=== PATIENT | male | born 1970 | race Caucasian/White ===

== ENCOUNTER 2022-08-25 06:23 | Emergency (ER) | payer BC ==
--- OUTSIDE RECORDS SUMMARY | 2022-08-25 06:28 | XMS REPORT | Continuity of Care Document ---
:1970 Author Organization [facility] t Address [address] [place] [address] Care Team Providers Name Role Phone Asked, No Pcp Primary Care Physician Unavailable Shan Lim DO Attending Clinician Jazlyn Noriega MD Attending Clinician Magdi Simmons MD Attending Clinician Marisel Mc MD Attending Clinician [phone] Christian Peters MD Attending Clinician Isabel OLMSTEAD, Janeen Stone Attending Clinician Chelsey Solo MA Attending Clinician Unavailable JEANA SCHERER Attending Clinician Unavailable RACHEL RICHARDS Attending Clinician Unavailable MD RACHEL RICHARDS Attending Clinician Unavailable MYNOR CLEMONS Attending Clinician Unavailable MD CHRISTIAN PETERS Attending Clinician Unavailable AKIL HERNÁNDEZ Attending Clinician Unavailable Aleksandar Barth Attending Clinician ALEKSANDAR HARRISON Attending Clinician Unavailable JAZLYN NORIEGA Admitting Clinician Unavailable MARISEL MC Admitting Clinician Unavailable RACHEL RICHARDS Admitting Clinician Unavailable MD RACHEL RICHARDS Admitting Clinician Unavailable JEANA SCHERER Admitting Clinician Unavailable CHRISTIAN PETERS Admitting Clinician Unavailable MD CHRISTIAN PETERS Admitting Clinician Unavailable Payers Payer Name Policy Type Policy Number Effective Date Expiration Date S ource Problems Condition Condition Condition Status Onset Resolution Last Treating Co mments Source Name Details Category Date Date Treatment Clinician Date Weakness Weakness Disease Active Metho di 9-21 st 00:00: Hospita 00 l Acute Acute Disease Active Methodi intractabl intractabl 3-15 st e e 00:00: Hospita tension-ty tension-ty 00 l pe pe headache headache Drug-induc Drug-induc Disease Active 2019-11 M ethodi ed ed 0-25 st constipati constipati 00:00: Ho spita on on 00 l Spinal Spinal Disease Active 2019-11 Methodi cord cord 0-15 st compressio compressio 00:00: Ho spita n n 00 l Stenosis, Stenosis, Disease Active 2019-11 Met steven spinal, spinal, 0-09 st thoracic thoracic 00:00: Hospit a 00 l Colitis Colitis Disease Active [facility] l Kidney Kidney Disease Active Methodi stones stones st Hospita l Allergies, Adverse Reactions, Alerts Allergy Allergy Status Severity Reaction(s) Onset Inactive Treating Comm ents Source Name Type Date Date Clinician NO KNOWN Drug Active Univers ALLERGIE [facility] Social History Social Habit Start Date Stop Date Quantity Comments Source Exposure to Not sure [facility] SARS-CoV-2 [facility] History of Current smoker [facility] tobacco use Alcohol intake 2022-01-20 2022-01-20 Current drinker [facility] 00:00:00 00:00:00 of alcohol (finding) Tobacco use and 2020-10-29 2020-10-29 User of smokeless [facility] exposure 00:00:00 00:00:00 tobacco Alcohol Comment 2020-08-12 2020-08-12 5-6 drinks per [facility] 00:00:00 00:00:00 week Sex Ass[birth year] At [birth year] [facility] 00:00:00 00:00:00 Smoking Status Start Date Stop Date Source Ex-smoker 2020-10-29 00:00:00 2020-10-29 00:00:00 [facility] Never smoker [facility] Medications Ordered Filled Start Stop Current Ordering Indication Dosage Frequency Signature Comments Components Source Medication Medication Date Date Medication? Clinician (SIG) Name Name chlorzoxazo Yes 500mg Q.5D Take 1 Met steven ne (PARAFON 9-[address] FORTE) 500 15:10: (500 mg Hosp camila mg tablet 05 total) by l mouth 2 (two) times a day. simvastatin Yes 10mg QD Take 1 Meth bryan (ZOCOR) 10 07-31 tablet (10 st MG tablet 15:10: mg total) Hos zen 05 by mouth l daily. At noon naproxen 0 2021- No 220mg Q12H Take 1 Metho di sodium 07-[address] (ALEVE) 220 15:10: 00:00 (220 mg Ho spita MG tablet 05 :00 total) by l mouth every 12 (twelve) hours as needed for mild pain. metFORMIN 2021- No 500mg QD Take 1 Meth bryan XR 07-[address] (GLUCOPHAGE 15:15: 00:00 (500 mg Ho spita -XR) 500 mg 05 :00 total) by l 24 hr mouth tablet daily. At noon gabapentin Yes 1600mg Q.5D Take 1,600 Methodi (NEURONTIN) -[address] 800 mg 15:15: mouth 2 Hospita tablet 02 (two) l times a day. Continuous Yes by [facility] Home 07-[address] Implanted 15:15: l route Hospi ta Intrathecal 02 continuous l Pain Pump ly. Implanted Dilaudid IT Pain Pump. Patient able to self-admin ister bolus 2-4 times daily.Infu renee rate: 0.48 mg / 24 hrSelf-Jc us of 0.2003 mg / bolus 2 to 4 times prn daily with 1 hour intervalsR efill due on: Septemberrescr bharati Doctor: Akil Hernández(per Prescripti on Drug Monitoring Program, last filled 05/28/2022 , quantity: 0.10, day supply: 1) nebivoloL 2021- No 20mg QD Take 20 mg M ethodi (BYSTOLIC) 07-[address] 20 mg 15:16: 00:00 daily. Hospita tablet 34 :00 l atorvastati 2021- No 10mg QD Take 10 mg Methodi n (LIPITOR) 07-[address] 10 mg 15:16: 00:00 daily. Hospita tablet 03 :00 l SITagliptin No 50mg QD Take 50 mg Methodi (JANUVIA) 3-15 -[address] 50 MG 12:06: 00:00 daily. AM Hospit a tablet 09 :00 [place] [id number] 1{tbl} Q8H Take 1 Methodi -acetaminop 3-15 -[address] hen (NORCO) 12:06: 00:00 mouth Hosp camila 10-325 mg 02 :00 every 8 l per tablet (eight) hours as needed for moderate pain .acute pain. DULoxetine No 60mg QD Take 60 mg Methodi (CYMBALTA) 3-15 03-[address] 60 MG 12:05: 00:00 daily. AM Hospit a capsule 55 :00 l baclofen No 10mg Q.5D Take 10 mg Me thodi (LIORESAL) -15 -[address] 10 MG 12:05: 00:00 (two) Hospita tablet 49 :00 times a l day. methocarbam No 500mg Q12H Take 500 Methodi oL 4-08 09-[address] (ROBAXIN) 00:00: 00:00 mouth Hospit a 500 MG 00 :00 every 12 l tablet (twelve) hours. Immunizations Ordered Immunization Filled Immunization Date Status Commen ts Source Name Name FLUCELVAX QUAD PF 2022-07-[address] 00:00:00 Hospital FLUCELVAX QUAD PF 2020-08-[address] 00:00:00 Hospital Vital Signs Vital Name Observation Time Observation Value Comments Source Systolic blood 2020-06-05 19:10:00 138 mm[Hg] Univer sity of pressure [facility] Diastolic blood 2020-06-05 19:10:00 87 mm[Hg] Unive rsity of pressure [facility] Heart rate 2020-06-05 19:10:00 80 /min [facility] Body weight 2020-06-05 19:10:00 104.327 kg [facility] Systolic blood 2022-07-30 17:07:03 130 mm[Hg] Method ist Hospital pressure Diastolic blood 2022-07-30 17:07:03 89 mm[Hg] [facility] dist Hospital pressure Heart rate 2022-07-30 17:07:03 84 /min [facility] Body temperature 2022-07-30 17:07:03 36.83 [facility] Respiratory rate 2022-07-30 17:07:03 18 /min [facility] Oxygen saturation in 2022-07-30 17:07:03 95 /min [facility] Arterial blood by Pulse oximetry Body height 2022-07-29 11:58:00 177.8 cm [facility] Body weight 2022-07-29 11:58:00 92.987 kg [facility] BMI 2022-07-29 11:58:00 29.41 kg/m2 [facility] Procedures Procedure Date / Time Performing Clinician Source Performed POC GLUCOSE 2022-07-30 17:32:00 Jazlyn Noriega spital POC GLUCOSE 2022-07-30 13:51:00 Jazlyn Noriega spital URINALYSIS SCREEN AND 2022-07-30 13:09:00 Leann [facility] MICROSCOPY, WITH REFLEX TO CULTURE URINE CULTURE 2022-07-30 13:09:00 Jazlyn Noriega spital HC COMPLETE BLD COUNT 2022-07-30 09:31:00 Leann [facility] W/AUTO DIFF BASIC METABOLIC PANEL 2022-07-30 09:31:00 Leann [facility] ESTIMATED GFR 2022-07-30 09:31:00 Jazlyn Noriega spital BLOOD CULTURE, AEROBIC & 2022-07-30 04:39:00 Jazlyn Noriega [facility] ANAEROBIC LACTIC ACID LEVEL, SEPSIS 2022-07-30 04:38:00 Jazlyn Noriega [facility] - NOW AND REPEAT 2X EVERY 3 HOURS POC GLUCOSE 2022-07-30 02:16:00 Jazlyn Noriega spital LACTIC ACID LEVEL, SEPSIS 2022-07-30 01:59:00 Leann [facility] - NOW AND REPEAT 2X EVERY 3 HOURS ECG 12-LEAD 2022-07-30 01:41:05 Jazlyn Noriega spital POC GLUCOSE 2022-07-29 23:27:00 Jazlyn Noriega spital COVID-19 SEROLOGY PATIENT 2022-07-29 23:21:00 Leann [facility] SURVEILLANCE HEMOGLOBIN A1C 2022-07-29 23:21:00 Jazlyn Noriega spital LIPID PANEL 2022-07-29 23:21:00 aJzlyn Noriega spital LACTIC ACID LEVEL, SEPSIS 2022-07-29 23:21:00 Leann [facility] - NOW AND REPEAT 2X EVERY 3 HOURS COVID-19 ANTI-SPIKE IGG 2022-07-29 23:21:00 Leann [facility] ANTIBODY TITER XR CHEST 1 VW PORTABLE 2022-07-29 23:15:[address] [facility] BLOOD CULTURE, AEROBIC & 2022-07-29 23:00:00 Leann [facility] ANAEROBIC CT CHEST WO CONTRAST 2022-07-29 22:06:[address] [facility] TROPONIN T 2022-07-29 21:43:00 Jazlyn Noriega spital LACTIC ACID LEVEL, SEPSIS 2022-07-29 21:43:00 Leann [facility] - NOW AND REPEAT 2X EVERY 3 HOURS TROPONIN T 2022-07-29 17:40:00 Jazlyn Noriega spital LACTIC ACID LEVEL, SEPSIS 2022-07-29 17:40:00 Leann [facility] - NOW AND REPEAT 2X EVERY [address] HEAD WO CONTRAST 2022-07-29 14:03:[address] [facility] COMPREHENSIVE METABOLIC 2022-07-29 13:15:00 Lim, [facility] PANEL HC COMPLETE BLD COUNT 2022-07-29 [facility] LIPASE LEVEL 2022-07-29 13:15:00 Lim, [facility] ARTERIAL BLOOD GAS 2022-07-29 13:15:00 Carina [facility] TROPONIN T 2022-07-29 13:15:00 Jazlyn Noriega spital B NATRIURETIC PEPTIDE 2022-07-29 13:15:00 Lim, [facility] ESTIMATED GFR 2022-07-29 13:15:00 [facility] RESPIRATORY PATHOGEN 2022-07-29 13:15:00 [facility] PANEL WITH COVID-19 RT-PCR ECG 12-LEAD 2022-07-29 12:00:23 [facility] POC GLUCOSE 2022-01-21 17:05:00 [facility] CT CERVICAL SPINE WO 2022-01-21 15:53:29 [facility] CONTRAST [facility] POC GLUCOSE 2022-01-21 12:40:00 [facility] BASIC METABOLIC PANEL 2022-01-21 09:50:00 [facility] HC COMPLETE BLD COUNT 2022-01-21 09:50:00 [facility] W/AUTO DIFF [facility] LIPID PANEL 2022-01-21 09:50:00 [facility] HEMOGLOBIN A1C 2022-01-21 09:50:00 [facility] COVID-19 SEROLOGY PATIENT 2022-01-21 09:50:00 [facility] SURVEILLANCE [facility] ESTIMATED GFR 2022-01-21 09:50:00 [facility] COVID-19 ANTI-SPIKE IGG 2022-01-21 09:50:00 [facility] ANTIBODY TITER [facility] POC GLUCOSE 2022-01-21 02:23:00 [facility] URINE DRUGS OF ABUSE 2022-01-21 00:24:00 [facility] SCREEN [facility] EEG AWAKE/DROWSY LESS 2022-01-20 20:02:07 Lakisha, [facility] THAN 41 MIN Geronimo Waldron LACTIC ACID LEVEL, SEPSIS 2022-01-20 17:30:00 [facility] - NOW AND REPEAT 2X EVERY Shan 3 HOURS TROPONIN T 2022-01-20 17:30:00 [facility] Shan CT ABDOMEN PELVIS W 2022-01-20 16:14[facility]17 [facility] 12-LEAD 2022-01-20 14:54:09 [facility] LACTIC ACID LEVEL, SEPSIS 2022-01-20 14:10:00 [facility] - NOW AND REPEAT 2X EVERY Shan 3 HOURS TROPONIN T 2022-01-20 14:10:00 [facility] Shan ALCOHOL LEVEL, BLOOD 2022-01-20 14:10:00 [facility] BLOOD CULTURE, AEROBIC & 2022-01-20 14:10:00 [facility] ANAEROBIC BLOOD CULTURE, AEROBIC & 2022-01-20 14:00:00 [facility] ANAEROBIC ECG ED PRELIMINARY 2022-01-20 13:21:14 [facility] INTERPRETATION URINALYSIS SCREEN AND 2022-01-20 12:06:00 [facility] MICROSCOPY, WITH REFLEX Shan TO CULTURE COVID-19 QUALITATIVE 2022-01-20 11:29:00 [facility] RT-PCR Shan CT HEAD WO CONTRAST 2022-01-20 11:16:57 [facility] Shan COMPREHENSIVE METABOLIC 2022-01-20 11:04:00 [facility] PANEL Shan LACTIC ACID LEVEL, SEPSIS 2022-01-20 11:04:00 [facility] NOW AND REPEAT 2X EVERY Shan 3 HOURS HC COMPLETE BLD COUNT 2022-01-20 11:04:00 [facility] W/AUTO DIFF Shan PROTHROMBIN TIME WITH INR 2022-01-20 11:04:00 [facility] Shan PARTIAL THROMBOPLASTIN 2022-01-20 11:04:00 [facility] TIME (PTT) Shan CREATINE KINASE, TOTAL 2022-01-20 11:04:00 [facility] Shan B NATRIURETIC PEPTIDE 2022-01-20 11:04:00 [facility] Shan TROPONIN T 2022-01-20 11:04:00 [facility] Shan ESTIMATED GFR 2022-01-20 11:04:00 [facility] Shan POC GLUCOSE 2022-01-20 11:00:00 Provider, Unknown [facility] URINE CULTURE 2022-01-20 10:59:00 [facility] Shan MRI LUMBAR SPINE W WO 2021-09-30 14:44:00 [facility] CONTRAST MRI THORACIC SPINE W WO 2021-09-30 14:44[facility] of Care Planned Activity Planned Date Details Comments Source Future Scheduled 2022-08-10 HEPATITIS B VACCINES Met [facility] Test 05:48:03 (1 of 3 - 3-dose series) [code = HEPATITIS B VACCINES (1 of 3 - 3-dose series)] Future Scheduled 2022-08-10 Hepatitis C screening [facility] Test 05:48:03 (procedure) [code = 253031426] Future Scheduled 2022-08-10 COLONOSCOPY SCREENING [facility] Test 05:48:03 [code = COLONOSCOPY SCREENING] Future Scheduled 2022-08-10 COVID-19 VACCINE (3 - [facility] Test 05:48:03 Booster for Moderna series) [code = COVID-19 VACCINE (3 - Booster for Moderna series)] Future Scheduled 2022-08-10 SHINGLES VACCINES (1 Met [facility] Test 05:48:03 of 2) [code = SHINGLES VACCINES (1 of 2)] Encounters Start End Encounter Admission Attending Care Care Encounter Source Date/Time Date/Time Type Type Clinicians Facility Department ID 2022-07-29 2022-07-30 [facility] Shan Lim 1.2.840.1 [id number] [facility] 07:02:00 15:10:00 Encounter Jazlyn Noriega [id number] 3.430.2.7 Hospit a .3.759709 l .8 2022-07-292022-07-30 Outpatient LEANN [facility] [id number] [place] 00:00:00 00:00:[address] 2022-07-29 2022-07-29 Travel 1.2.840.1 1.2.425.323 [id number] Methodi 00:00:00 00:00:[id number] 3.430.2.7 0.2.7.3.698 Ho spita .3.340374 084.8 l .8 2022-01-20 2022-01-[facility] 1.2.840.1 [id number] Methodi 05:52:00 14:03:00 Encounter Marisel Mc 74472. 1.[address] 3.430.2.7 Hospit a .3.070825 l .8 2022-01-20 2022-01-21 Inpatient TRA [facility] [id number] [place] 00:00:00 00:00:00 MARISEL [address] 2021-11-19 2021-11-19 Office Fran, 1.2.840.1 [id number] Methodi 13:15:00 14:05:03 Visit Christian Aguirre 64673.1.[address] 3.430.2.7 Hospit a .3.977031 l .8 2021-11-19 2021-11-19 Outpatient FRAN [facility] [id number] [place] 00:00:00 00:00:[address]IAN [address] [facility] 2021-11-19 2021-11-19 Travel 1.2.840.1 1.2.907.766 [id number] Methodi 00:00:00 00:00:[address] 3.430.2.7 0.2.7.3.698 Ho spita .3.958269 084.8 l .8 2021-10-28 2021-10-28 Documentat Isabel, 1.2.840.1 [id number] Methodi 00:00:00 00:00:00 ion Janeenvalery Stone 22381.1.[address] 3.430.2.7 Hospit a .3.722005 l .8 2021-09-30 2021-09-30 [facility], 1.2.840.1 [id number] Methodi 06:51:20 23:59:00 Encounter Christian Aguirre 63509.1.[address] 3.430.2.7 Hospit a .3.276283 l .8 2021-09-30 2021-09-30 [facility] 1.2.840.1 [id number] Methodi 06:37:50 06:50:00 Encounter Christian Aguirre 57477.1.[address] 3.430.2.7 Hospit a .3.347669 l .8 2021-09-30 2021-09-30 Outpatient FRAN [facility] [id number] [address] [place] [address] 00:00:00 00:00:00 CHRISTIAN Garcia [facility] 2021-09-30 2021-09-30 Outpatient FRAN [facility] [id number] [address] [place] [address] 00:00:00 00:00:00 CHRISTIAN Navarrete [facility] 2021-09-30 2021-09-30 Travel 1.2.840.1 1.2.509.816 [id number] Methodi 00:00:00 00:00:[address] 3.430.2.7 0.2.7.3.698 Ho spita .3.995376 084.8 l .8 2021-09-24 2021-09-24 Travel 1.2.840.1 1.2.303.125 [id number] Methodi 00:00:00 00:00:[address] 3.430.2.7 0.2.7.3.698 Ho spita .3.099304 084.8 l .8 2021-09-17 2021-09-17 Office [facility] 1.2.840.1 [id number] Methodi 15:00:00 15:59:13 Visit Christian Aguirre 39318.1.[address] 3.430.2.7 Hospit a .3.839420 l .8 2021-09-17 2021-09-17 Outpatient PETERS, [facility] [id number] [place] 00:00:00 00:00:00 CHRISTIAN [address] 2021-09-17 2021-09-17 Orders Solo, 1.2.840.1 [id number] Methodi 00:00:00 00:00:00 Only Chelsey 87293.1.[address] 3.430.2.7 Hospit a .3.819081 l .8 2021-09-17 2021-09-17 Travel 1.2.840.1 1.2.799.530 [id number] Methodi 00:00:00 00:00:[address] 3.430.2.7 0.2.7.3.698 Ho spita .3.711935 084.8 l .8 2021-03-07 2021-03-07 Outpatient TASTARD, [facility] [id number] [place] 00:00:00 00:00:00 JEANA [address] 2021-02-28 2021-02-28 Outpatient TASTARD, [facility] [id number] [place] 00:00:00 00:00:00 JEANA [address] 2021-02-18 2021-02-18 Outpatient TASTARD, [facility] [id number] [place] 00:00:00 00:00:00 JEANA [address] 2021-02-18 2021-02-18 Outpatient TASTARD, [facility] [id number] [place] 00:00:00 00:00:00 JEANA [address] 2021-02-14 2021-02-14 Outpatient TASTARD, [facility] [id number] [place] 00:00:00 00:00:00 JEANA [address] 2021-02-04 2021-02-04 Outpatient TASTARD, [facility] [id number] [place] 00:00:00 00:00:00 JEANA [address] 2021-01-31 2021-01-31 Outpatient TASTARD, [facility] [id number] [place] 00:00:00 00:00:00 JEANA [address] 2021-01-30 2021-01-30 Outpatient TASTARD, [facility] [id number] [place] 00:00:00 00:00:00 JEANA [address] 2021-01-28 2021-01-28 Outpatient TASTARD, [facility] [id number] [place] 00:00:00 00:00:00 JEANA [address] 2021-01-23 2021-01-23 Outpatient TASTARD, [facility] [id number] [place] 00:00:00 00:00:00 JEANA [address] 2021-01-22 2021-01-22 Outpatient TASTARD, [facility] [id number] [place] 00:00:00 00:00:00 JEANA [address] 2021-01-20 2021-01-20 Outpatient TASTARD, [facility] [id number] [place] 00:00:00 00:00:00 JEANA [address] 2021-01-17 2021-01-17 Outpatient TASTARD, [facility] [id number] [place] 00:00:00 00:00:00 JEANA [address] 2021-01-16 2021-01-16 Outpatient TASTARD, [facility] [id number] [place] 00:00:00 00:00:00 JEANA [address] 2021-01-14 2021-01-14 Outpatient TASTARD, [facility] [id number] [place] 00:00:00 00:00:00 JEANA [address] 2021-01-10 2021-01-10 Outpatient TASTARD, [facility] [id number] [place] 00:00:00 00:00:00 JEANA [address] 2021-01-09 2021-01-09 Outpatient TASTARD, [facility] [id number] [place] 00:00:00 00:00:00 JEANA [address] 2021-01-07 2021-01-07 Outpatient TASTARD, [facility] [id number] [place] 00:00:00 00:00:00 JEANA [address] 2021-01-03 2021-01-03 Outpatient TASTARD, [facility] [id number] [place] 00:00:00 00:00:00 JEANA [address] 2021-01-02 2021-01-02 Outpatient TASTARD, [facility] [id number] [place] 00:00:00 00:00:00 JEANA [address] 2020-12-31 2020-12-31 Outpatient TASTARD, [facility] [id number] [place] 00:00:00 00:00:00 JEANA 827 Method i 2020-12-20 2020-12-20 Outpatient TASTARD, [facility] [id number] [place] 00:00:00 00:00:00 JEANA 821 Method i 2020-12-19 2020-12-19 Outpatient TASTARD, [facility] [id number] [place] 00:00:00 00:00:00 JEANA [address] 2020-12-17 2020-12-17 Outpatient TASTARD, [facility] [id number] [place] 00:00:00 00:00:00 JEANA 817 Method i 2020-12-13 2020-12-13 Outpatient TASTARD, [facility] [id number] [place] 00:00:00 00:00:00 JEANA 816 Method i 2020-12-12 2020-12-12 Outpatient TASTARD, [facility] [id number] [place] 00:00:00 00:00:00 JEANA [address] 2020-12-10 2020-12-10 Outpatient TASTARD, [facility] [id number] [place] 00:00:00 00:00:00 JEANA 814 Method i 2020-12-05 2020-12-05 Outpatient TASTARD, [facility] [id number] [place] 00:00:00 00:00:00 JEANA 813 Method i 2020-12-03 2020-12-03 Outpatient TASTARD, [facility] [id number] [place] 00:00:00 00:00:00 JEANA 812 Method i 2020-12-02 2020-12-02 Outpatient TASTARD, [facility] [id number] [place] 00:00:00 00:00:00 JEANA [address] 2020-11-29 2020-11-29 Outpatient TASTARD, [facility] [id number] [place] 00:00:00 00:00:00 JEANA [address] 2020-11-28 2020-11-28 Outpatient TASTARD, [facility] [id number] [place] 00:00:00 00:00:00 JEANA [address] 2020-11-26 2020-11-26 Outpatient TASTARD, [facility] [id number] [place] 00:00:00 00:00:00 JEANA [address] 2020-11-14 2020-11-14 Outpatient SUSIE, RACHEL [facility] [id number] [place] 00:00:00 00:00:[address] 2020-10-29 2020-10-29 Outpatient SUSIE, RACHEL [facility] [id number] [place] 00:00:00 00:00:[address] 2020-10-28 2020-10-28 Outpatient RACHEL RICHARDS [facility] [id number] [place] 00:00:00 00:00:[address] 2020-10-28 2020-10-28 Outpatient TASTARD, [facility] [id number] [place] 00:00:00 00:00:00 JEANA [address] 2020-10-25 2020-10-25 Outpatient RACHEL RICHARDS [facility] [id number] [place] 00:00:00 00:00:[address] 2020-10-24 2020-10-24 Outpatient TASTARD, [facility] [id number] [place] 00:00:00 00:00:00 JEANA [address] 2020-10-23 2020-10-23 Outpatient TASTARD, [facility] [id number] [place] 00:00:00 00:00:00 JEANA [address] 2020-10-22 2020-10-22 Outpatient TASTARD, [facility] [id number] [place] 00:00:00 00:00:00 JEANA [address] 2020-10-16 2020-10-16 Outpatient TASTARD, [facility] [id number] [place] 00:00:00 00:00:00 JEANA [address] 2020-10-15 2020-10-15 Outpatient TASTARD, [facility] [id number] [place] 00:00:00 00:00:00 JEANA [address] 2020-10-14 2020-10-14 Outpatient CLEMONS, [facility] [id number] [place] 00:00:00 00:00:00 MYNOR [address] 2020-10-11 2020-10-11 Outpatient TASTARD, [facility] [id number] [place] 00:00:00 00:00:00 JEANA [address] 2020-10-09 2020-10-09 Outpatient TASTARD, [facility] [id number] [place] 00:00:00 00:00:00 JEANA [address] 2020-10-08 2020-10-08 Outpatient TASTARD, [facility] [id number] [place] 00:00:00 00:00:00 JEANA [address] 2020-10-01 2020-10-01 Outpatient TASTARD, [facility] [id number] [place] 00:00:00 00:00:00 JEANA [address] 2020-09-30 2020-09-30 Outpatient TASTARD, [facility] [id number] [place] 00:00:00 00:00:00 JEANA [address] 2020-09-25 2020-09-25 Outpatient TASTARD, [facility] [id number] [place] 00:00:00 00:00:00 JEANA [address] 2020-09-24 2020-09-24 Outpatient TASTARD, [facility] [id number] [place] 00:00:00 00:00:00 JEANA [address] 2020-09-24 2020-09-24 Outpatient TASTARD, [facility] [id number] [place] 00:00:00 00:00:00 JEANA [address] 2020-09-18 2020-09-18 Outpatient PETERS, [facility] [id number] [place] 00:00:00 00:00:00 CHRISTIAN [address] 2020-08-22 2020-09-13 Inpatient TASTARD, [place] [id number] [place] 00:00:00 00:00:00 JEANA [address] 2020-08-16 2020-08-22 Inpatient FRAN, [facility] [id number] [place] 00:00:00 00:00:00 CHRISTIAN [address] 2020-08-14 2020-08-14 Outpatient PETERS, [facility] [id number] [place] 00:00:00 00:00:00 CHRISTIAN [address] 2020-08-13 2020-08-13 Outpatient FRAN, [facility] [id number] [place] 00:00:00 00:00:00 CHRISTIAN [address] 2020-08-13 2020-08-13 Outpatient FRAN, [facility] [id number] [place] 00:00:00 00:00:00 CHRISTIAN [address] 2020-08-09 2020-08-09 Outpatient FRAN, [facility] [id number] [place] 00:00:00 00:00:00 CHRISTIAN [address] 2020-08-05 2020-08-05 Outpatient JALYN, [facility] [id number] [place] 00:00:00 00:00:00 AKIL [address] 2020-08-05 2020-08-05 Outpatient SATIJA, [facility] [id number] [place] 00:00:00 00:00:00 AKIL 7[address] 2020-08-05 2020-08-05 Outpatient SATIJA, [facility] [id number] [place] 00:00:00 00:00:00 AKIL 080 [address] 2020-06-05 2020-06-05 Office Hunter [facility] [id number] [facility] 14:07:16 14:22:16 Visit [facility] [id number] it y of Surgical [id number] Shlomo as Specialti [id number] Mt dical es [address] [place] 2020-06-05 2020-06-05 Outpatient R HUNTER [facility] [id number] [facility] 14:15:00 14:15:00 [facility] Results Test Description Test Time Test Comments Results Result Comments Source POC glucose 2022-07-30 17:54:00 Test Item Value Reference Range Interpretation Comme nts POC glucose (test code = 85 mg/dL 65-99 Ope rator Name: Jerardo [id number] Ojeda ID: [id number] [facility] [id number] 14:46:00 Test Item Value Reference Range Interpretation Comments Urine culture (test SEE COMMENT Bacteriu eri screen code = 6148615) negative. [facility] 12 [id number] 23:18:09 Test Item Value Reference Range Interpretation Comments Ventricular rate (test code = 253) Atrial rate (test code = 255) CO interval (test code = 266) QRSD interval (test code = 260) QT interval (test code = 264) QTC interval (test code = 265) P axis 1 (test code = 267) QRS axis 1 (test code = 268) T wave axis (test code = 270) EKG impression (test Sinus code = 273) tachycardia-Otherwise normal ECG-In automated comparison with ECG of 20-JAN-2022 09:54,-Vent. rate has increased BY 43 BPM- [facility] ED Preliminary Interpretation - Not an [id number] 13:21:14 Test Item Value Reference Range Interpretation Comments DELICIA (test code = DELICIA) Magdi Simmons MD 01/25/2022 7:18 [facility] ED Preliminary Interpretation - Not an OrderPerformed by: Magdi Simmons MDAuthorized by: Magdi Simmons MD ECG reviewed by ED Physician in the absence of a steam frame operator: yes Interpretation: Interpretation: abnormal Rate: ECG rate: 67 ECG rate assessment: normal Rhythm: Rhythm: sinus rhythm Ectopy: Ectopy: none QRS: QRS axis: Normal QRS intervals: NormalConduction: Conduction: normal ST segments: ST segments: NormalT waves: T waves: flattening Q waves: Q wave noted on lead: present.Comments: Long QT Lab Interpretation Abnormal (test code = 39642-1) [facility] [Presence] in Respiratory specimen by PHAN with probe [id number] 10:32:06 Test Item Value Reference Range Interpretation Comments SARS-CoV-2 (COVID-19) RNA Not detected [Presence] in Respiratory specimen by PHAN with probe detection (test code = 97364-5) Whether patient is employed in a Unknown healthcare setting (test code = 99022-5) Whether the patient has symptoms Unknown related to condition of interest (test code = 88194-3) Whether the patient was Unknown hospitalized for condition of interest (test code = 82381-6) Whether the patient was admitted Unknown to intensive care unit (ICU) for condition of interest (test code = 00372-8) Whether patient resides in a Unknown congregate care setting (test code = 45435-6) status (test code = Unknown 18952-7) Date and time of symptom onset Unknown (test code = 58339-3) SARS-CoV-2 (COVID-19) RNA [Presence] in Respiratory specimen by PHAN with probe [id number] 13:10:54 Test Item Value Reference Range Interpretation Comments SARS-CoV-2 (COVID-19) RNA Not detected Not-Detected [Presence] in Respiratory specimen by PHAN with probe detection (test code = 63544-4) SARS-CoV-2 (COVID-19) RNA [Presence] in Respiratory specimen by PHAN with probe [id number] 22:42:12 Test Item Value Reference Range Interpretation Comments SARS-CoV-2 (COVID-19) RNA Not detected Not-Detected [Presence] in Respiratory specimen by PHAN with probe detection (test code = 82398-3)
[2022-08-25 07:56] LABS: Absolute Lymphocytes (CBC) 1.2 K/uL (0.7-4.9); Hematocrit 43.8 % (39.6-49.0); Lymphocytes % 21.9 % (15.3-44.8); MCV 87.3 fL (80-100); MPV 7.9 fL (7.6-11.3); RBC Red Blood Cell Count 5.01 M/uL (4.33-5.43)
[2022-08-25] MEDS ORDERED: NA CHLORIDE 0.9% 1,000 ML ONE (08:02)
[2022-08-25] MEDS ORDERED: CEFTRIAXONE 1000 MG/VIAL ONE (08:02)
[2022-08-25 08:03] LABS: Protime INR 1.06
[2022-08-25 08:13] LABS: Urine Blood Negative (Negative); Urine Glucose Negative (Negative); Urine Protein Negative (Negative); Urine Specific Gravity 1.015 (1.005-1.030); Urine pH 7.5 (5.0-7.0)
[2022-08-25 08:26] LABS: Albumin 4.3 g/dL (3.4-5.0); Bilirubin Direct 0.3 mg/dL (0-0.2); Bilirubin Total 1.1 mg/dL (0.2-1.0); Magnesium 1.9 mg/dL (1.8-2.4); Protein, Total 7.8 g/dL (6.4-8.2); Troponin High Sensitivity 4.6 pg/mL (<58.9)
--- NOTE | 2022-08-25 09:03 | ER ---
Nurse's Notes [facility] Name: Helder Wild Age: 52 yrs Sex: Male : 1970 Arrival Date: 08/25/2022 Time: 06:27 Bed 19 Private MD: Diagnosis: Other malaise and fatigue;Weakness Presentation: 08/25 07:22 Chief complaint: Patient states: "Lactic acid build-up", history of same. + diarrhea bb this morning. Coronavirus screen: Vaccine status: Patient reports receiving the 2nd dose of the covid vaccine. Client denies travel out of the [place] in the last 14 days. At this time, the client does not indicate any symptoms associated with coronavirus-19. Ebola Screen: Patient denies travel to an Ebola-affected area in the 21 days before illness onset. Initial Sepsis Screen: Does the patient meet any 2 criteria? No. Patient's initial sepsis screen is negative. Does the patient have a suspected source of infection? No. Patient's initial sepsis screen is negative. Risk Assessment: Do you want to hurt yourself or someone else? Patient reports no desire to harm self or others. Onset of symptoms was August 25, 2022. 07:22 Method Of Arrival: Ambulatory bb 07:22 Acuity: JOHNNIE 3 bb Triage Assessment: 07:22 General: Appears in no apparent distress. Behavior is calm, cooperative, appropriate bb for age. Pain: Complains of pain in head Pain currently is 2 out of 10 on a pain scale. Quality of pain is described as burning. Neuro: Reports headache "lactic acid build-up". GI: Reports diarrhea. Historical: - Allergies: 07:22 No Known Allergies; bb - PMHx: 07:22 lactic acid buildup; bb - PSHx: 07:22 back surgery; bb - Immunization history:: Client reports receiving the 2nd dose of the Covid vaccine. - Social history:: Smoking status: Patient denies any tobacco usage or history of. - Family history:: not pertinent. - Hospitalizations: : No recent hospitalization is reported. Screenin:36 Abuse screen: Denies threats or abuse. Nutritional screening: No deficits noted. bb Tuberculosis screening: No symptoms or risk factors identified. Fall Risk IV access (20 points). Total Arellano Fall Scale indicates No Risk (0-24 pts). Assessment: 08:00 Reassessment: No changes from previously documented assessment. Patient and/or family bb updated on plan of care and expected duration. Pain level reassessed. 08:37 Reassessment: No changes from previously documented assessment. Patient and/or family bb updated on plan of care and expected duration. Pain level reassessed. Vital Signs: 07:22 BP 164 / 103; Pulse 86; Resp 17; Temp 98.6; Pulse Ox 2% ; Weight 92.99 kg; Height 5 ft. bb 10 in. (177.80 cm); Pain 2/10; 08:36 BP 141 / 87; Pulse 75; Resp 16; Pulse Ox 100% on R/A; bb 09:51 BP 138 / 87; Pulse 86; Resp 17; Pulse Ox 100% on R/A; kr3 07:22 Body Mass Index 29.41 (92.99 kg, 177.80 cm) bb ED Course: 06:27 Patient arrived in ED. ja2 06:28 Js El MD is Attending Physician. rn 07:14 Attending Physician role handed off by Js El MD eleazar 07:14 Weston Tello MD is Attending Physician. eleazar 07:15 Stacie Chung, RN is Primary Nurse. bb 07:22 Arm band placed on. bb 07:25 Inserted saline lock: 22 gauge in right antecubital area, using aseptic technique. bb Blood collected. 08:35 Triage completed. bb 08:36 Patient has correct armband on for positive identification. Bed in low position. Call bb light in reach. Side rails up X 1. Client placed on continuous cardiac and pulse oximetry monitoring. NIBP monitoring applied. 08:44 XRAY Chest (1 view) In Process Unspecified. EDMS 09:51 No provider procedures requiring assistance completed. kr3 09:52 IV discontinued, intact, bleeding controlled, No redness/swelling at site. Pressure kr3 dressing applied. Administered Medications: 08:14 Drug: NS 0.9% 1000 ml Route: IV; Rate: 1000 ml; Site: right antecubital; ss 09:53 Follow up: Response: No adverse reaction; IV Status: Completed infusion; IV Intake: kr3 1000ml 09:25 Not Given (Patient Refused): Rocephin (cefTRIAXone) 2 grams IV at per protocol once; kr3 Given slow IV push per pharmarcy instructions Medication: 07:22 VIS not applicable for this client. cosme Intake: 09:53 IV: 1000ml; Total: 1000ml. kr3 Outcome: 09:03 Discharge ordered by . eleazar 09:52 Discharged to home ambulatory. kr3 09:52 Condition: stable 09:52 Discharge instructions given to patient, Instructed on discharge instructions, follow up and referral plans. Demonstrated understanding of instructions, follow-up care. 09:53 Patient left the ED. kr3 Signatures: Dispatcher [employer] EDMS Weston Tello MD MD cha Ballard, Brenda, RN RN Js Brar MD MD rn Smirch, Shelby, RN RN ss Alexander, Jessica ja2 Reid, Kelley, RN RN kr3
--- NOTE | 2022-08-25 09:03 | EDPHYS ---
Physician Documentation [facility] Name: Helder Wild Age: 52 yrs Sex: Male : 1970 Arrival Date: 08/25/2022 Time: 06:27 Bed 19 Private MD: ED Physician Weston Tello HPI: 08/25 06:47 This 52 yrs old Male presents to ER via Unassigned with complaints of Doesn't Feel rn Right. 06:47 Onset: The symptoms/episode began/occurred yesterday. Possible causes: lactic acidosis. rn Associated signs and symptoms: Pertinent positives: ataxia, dizziness, palpitations, Pertinent negatives: abdominal pain, chest pain, seizure, shortness of breath. Current symptoms: In the emergency department the patient's symptoms are unchanged from the initial presentation. The patient has experienced similar episodes in the past. The patient has not recently seen a physician. Pt reports hx of lactic acidosis, this will be 3rd time, taken off his metformin, no new medications. Doesn't know his blood sugar. No fever. + chills and shaking. . Historical: - Allergies: 07:22 No Known Allergies; bb - PMHx: 07:22 lactic acid buildup; bb - PSHx: 07:22 back surgery; bb - Immunization history:: Client reports receiving the 2nd dose of the Covid vaccine. - Social history:: Smoking status: Patient denies any tobacco usage or history of. - Family history:: not pertinent. - Hospitalizations: : No recent hospitalization is reported. ROS: 06:47 Constitutional: Negative for fever, and weight loss, Eyes: Negative for injury, pain, rn redness, and discharge, Neck: Negative for injury, pain, and swelling, Cardiovascular: Negative for chest pain, palpitations, and edema, Respiratory: Negative for shortness of breath, cough, wheezing, and pleuritic chest pain, Abdomen/GI: Negative for abdominal pain, nausea, vomiting, diarrhea, and constipation, Back: Negative for injury and pain, MS/Extremity: Negative for injury and deformity, Skin: Negative for injury, rash, and discoloration, Neuro: Negative for headache, numbness, tingling, and seizure. Exam: 06:47 Constitutional: This is a well developed, well nourished patient who is awake, alert, rn tremulous Head/Face: Normocephalic, atraumatic. Eyes: Periorbital areas with no swelling, redness, or edema. ENT: dry MM Cardiovascular: Tachycardic, regular Respiratory: Mild tachypnea Abdomen/GI: Soft, non-tender Skin: Warm, dry MS/ Extremity: Pulses equal, no cyanosis. Neuro: Awake and alert, GCS 15 08:34 ECG was reviewed by the Attending Physician. [facility] Vital Signs: 07:22 BP 164 / 103; Pulse 86; Resp 17; Temp 98.6; Pulse Ox 2% ; Weight 92.99 kg; Height 5 ft. bb 10 in. (177.80 cm); Pain 2/10; 08:36 BP 141 / 87; Pulse 75; Resp 16; Pulse Ox 100% on R/A; bb 09:51 BP 138 / 87; Pulse 86; Resp 17; Pulse Ox 100% on R/A; kr3 07:22 Body Mass Index 29.41 (92.99 kg, 177.80 cm) bb MDM: 06:28 Patient medically screened. rn 08:21 Differential Diagnosis: CVA, electrolyte abnormality, hypoglycemia, pneumonia, sepsis, eleazar TIA, UTI, volume depletion. Data reviewed: vital signs, nurses notes, lab test result(s), EKG, radiologic studies, plain films. Data interpreted: independent agent music education: rate is 75 beats/min, rhythm is normal sinus rhythm, Pulse oximetry: on room air is 99 %. Test interpretation: by ED physician or midlevel provider: ECG, plain radiologic studies. Counseling: I had a detailed discussion with the patient and/or guardian regarding: the historical points, exam findings, and any diagnostic results supporting the discharge/admit diagnosis, lab results, radiology results, the need for outpatient follow up, for definitive care, a family practitioner. 08/25 06:47 Order name: CBC with Diff; Complete Time: 08:19 rn 08/25 06:47 Order name: Basic Metabolic Panel; Complete Time: 21:32 rn 08/25 06:47 Order name: Urine Microscopic Only; Complete Time: 21:32 rn 08/25 06:47 Order name: Lactate; Complete Time: 08:41 rn 08/25 07:16 Order name: LFT's; Complete Time: 08:41 [facility] 08/25 07:16 Order name: Magnesium; Complete Time: 08:41 [facility] 08/25 07:16 Order name: NT PRO-BNP; Complete Time: 08:41 [facility] 08/25 07:16 Order name: PT-INR; Complete Time: 08:19 [facility] 08/25 07:16 Order name: Troponin HS; Complete Time: 08:41 [facility] 08/25 07:36 Order name: Blood Culture Adult (2) [facility] 08/25 08:13 Order name: Urine Dipstick-Ancillary; Complete Time: 08:19 EDMS 08/25 08:55 Order name: SARS-COV-2 Antigen Rapid; Complete Time: 21:32 08/25 08:55 Order name: Influenza Screen (a \T\ B); Complete Time: 21:32 bd 08/25 06:47 Order name: IV Start; Complete Time: 08:14 rn 08/25 06:47 Order name: Urine Dipstick-Ancillary (obtain specimen); Complete Time: 09:01 08/25 06:47 Order name: Glucose Level; Complete Time: 09:00 08/25 06:47 Order name: EKG - Nurse/Tech; Complete Time: 09:00 08/25 06:47 Order name: EKG; Complete Time: 06:47 08/25 06:47 Order name: Cardiac monitoring 08/25 06:47 Order name: O2 Sat Monitoring; Complete Time: 07:23 08/25 07:16 Order name: XRAY Chest (1 view); Complete Time: 21:32 [facility] 08/25 07:16 Order name: Labs collected and sent; Complete Time: 07:44 [facility] 08/25 07:16 Order name: O2 Per Protocol; Complete Time: 07:24 [facility] 08/25 08:55 Order name: Strep; Complete Time: 21:32 bd EC:34 Rate is 70 beats/min. Rhythm is regular. QRS Pillow is Normal. CO interval is normal. QRS eleazar interval is normal. QT interval is normal. No Q waves. T waves are Normal. No ST changes noted. Clinical impression: Normal ECG and No evidence of ischemia. Interpreted by me. Reviewed by me. Administered Medications: 08:14 Drug: NS 0.9% 1000 ml Route: IV; Rate: 1000 ml; Site: right antecubital; ss 09:53 Follow up: Response: No adverse reaction; IV Status: Completed infusion; IV Intake: kr3 1000ml 09:25 Not Given (Patient Refused): Rocephin (cefTRIAXone) 2 grams IV at per protocol once; kr3 Given slow IV push per pharmarcy instructions Disposition Summary: 08/25/22 09:03 Discharge Ordered Location: Home eleazar Problem: new eleazar Symptoms: have improved eleazar Condition: Stable eleazar Diagnosis - Other malaise and fatigue eleazar - Weakness eleazar Followup: eleazar - With: Private Physician - When: 1 - 2 days - Reason: Recheck today's complaints, Continuance of care, Re-evaluation by your physician Discharge Instructions: - Discharge Summary Sheet eleazar - Weakness eleazar - Weakness, [id number] eleazar - Fatigue eleazar Forms: - Medication Reconciliation Form eleazar - Thank You Letter eleazar - Antibiotic Education eleazar - Prescription Opioid Use eleazar Signatures: Dispatcher [employer] EDWeston Watkins MD MD cha Ballard, Brenda, RN RN Js Brar MD MD rn Smirch, Shelby, RN RN ss Reid, Kelley RN kr3 Corrections: (The following items were deleted from the chart) 08:44 08:43 Misc. Order ordered. eleazar eleazar
[2022-08-25 09:26] LABS: Urine RBC <5 /HPF (None Seen)
--- NOTE | 2022-08-25 09:51 | RAD REPORT ---
EXAM DESCRIPTION: RAD - Chest Single View - 08/25/2022 8:42 am CLINICAL HISTORY: COUGH Chest pain. COMPARISON: CHEST PA AND LAT 2 VIEW dated 01/15/2015; ABDOMEN 1 VIEW KUB dated 03/28/2014; ABDOMEN 1 V IEW KUB dated 03/13/2014; ABDOMEN ACUTE SERIES dated 06/07/2012 FINDINGS: Portable technique limits examination quality. The lungs are grossly clear. The heart is normal in size. No displaced fractures. IMPRESSION: No acute intrathoracic process suspected.
[2022-08-25 09:53] LABS: Potassium 3.5 mmol/L (3.5-5.1)
[2022-08-25 10:02] VITALS: TEMP 98.6
[2022-08-25 10:03] VITALS: O2SAT 100
[2022-08-25 10:04] VITALS: BP 138/87
[2022-08-25 10:08] LABS: SARS-CoV-2 Antigen Rapid Res Negative (Negative)
--- NOTE | 2022-08-25 14:00 | EKG ---
Test Date: 2022-08-25 Test Time: 08:26:51 Delivery Coordinator: SUSANA MEASUREMENT RESULTS: Intervals: Rate: 70 TN: 150 QRSD: 78 QT: 408 QTc: 440 [place]: P: -12 TN: 150 QRS: -25 T: 24 INTERPRETIVE STATEMENTS: Normal sinus rhythm Normal ECG No previous ECG available for comparison Electronically Signed On 08-25-22 14:00:08 CDT by Niels Brown
== END 2022-08-25 09:53 | disposition home or self-care (01) ==
LOC: ER 06:23
DX: R53.81 Other malaise (principal); R53.83 Other fatigue; R53.1 Weakness; Z20.822 Contact with and (suspected) exposure to COVID-19
CPT/HCPCS: 96361; 93005; 87040; 87070; 85025; 80048; 36415; 83735; 85610; 80076; 87081; 83605; 84484; 83880; 87804 ×2; 71045; 96360; 99284; 87811; J7030; 81003; 81015